=== PATIENT | female | born 1955 | race Caucasian/White ===

== ENCOUNTER 2021-04-04 21:26 | Emergency (ER) | payer MEDICARE, OTHER ==
[2021-04-04] MEDS ORDERED: Sodium Chloride 0.9% 10 ML Syringe FLUSH PRN (21:35)
--- NOTE | 2021-04-04 21:46 | EDM.PDOC ---
ED HPI GENERAL MEDICAL PROBLEM - General Chief Complaint: Cardiovascular Problem Stated Complaint: LOW BLOOD PRESSURE Time Seen by Provider: 04/04/21 21:34 Source of Information: Reports: Patient, Family History Limitations: Reports: No Limitations - History of Present Illness INITIAL COMMENTS - FREE TEXT/NARRATIVE: Janessa is a 66-year-old female from [place], [place] who presents to the ED for evaluation of nausea, mild shortness of breath, heartburn, and jaw pain that started about 2 hours ago. The patient also reportedly had heartburn yesterday which she attributed to her symptoms related to her hiatal hernia. The patient has a history significant for hypertension, hyperlipidemia, obesity, B12 deficiency with easy bruisability and a hiatal hernia. I report, the patient's family including her daughter who is an ER nurse treated her by icing her groin and armpits and gave her 4 81 mg aspirin to chew. This did not improve her symptoms prompting him to come in for evaluation. The patient does take lisinopril, amlodipine, omeprazole, and furosemide as well as a multitude of vitamins and gets B12 shots monthly. She normally receives her health care at [facility] in [place], [place]. Additional history from the family and patient, she reportedly is having some word finding difficulty at the onset of the symptoms at 1930 hrs. tonight which may be due to vasovagal type episode, however, family is very concerned that she may have had a TIA. Currently the symptoms are abating. They would like her to have a CT of the head to evaluate for stroke. Patient has a known carotid stenosis. Patient is also complaining of a mild headache since his onset of symptoms. 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: EKG - Related Data Allergies Allergy/AdvReac Type Severity Reaction Status Date / Time No Known Allergies Allergy Verified 04/04/21 21:40 Home Meds: Home Meds Ascorbic Acid [Vitamin C] 1 tab PO DAILY 04/04/21 [History] Aspirin [Halfprin] 1 tab PO DAILY 04/04/21 [History] Biotin 5,000 mcg PO DAILY 04/04/21 [History] Cholecalciferol (Vitamin D3) [D3-2000] 125 mcg PO DAILY 04/04/21 [History] Furosemide [Lasix] 20 mg PO DAILY 04/04/21 [History] Ibuprofen [Motrin] 1 tab PO TID 04/04/21 [History] Magnesium 1 tab PO DAILY 04/04/21 [History] Minocycline [Minocin] 1 cap PO DAILY 04/04/21 [History] Multivit-Min/FA/Lycopen/Lutein [Centrum Silver Tablet] 1 tab PO DAILY 04/04/21 [History] Omeprazole 20 mg PO BID 04/04/21 [History] Potassium Gluconate 1 tab PO DAILY 04/04/21 [History] Pregabalin [Lyrica] 1 cap PO BID 04/04/21 [History] Rosuvastatin [Crestor] 5 mg PO QPM 04/04/21 [History] Vitamin B6-pyridOXINE 1 tab PO DAILY 04/04/21 [History] Zinc 1 tab PO DAILY 04/04/21 [History] amLODIPine Besylate [Amlodipine Besylate] 10 mg PO DAILY 04/04/21 [History] lisinopriL [Prinivil] 40 mg PO DAILY 04/04/21 [History] traMADol HCl [Tramadol HCl] 1 mg PO TID PRN 04/04/21 [History] ED ROS GENERAL - Review of Systems Review Of Systems: See Below Constitutional: Reports: No Symptoms HEENT: Reports: No Symptoms Respiratory: Reports: No Symptoms Cardiovascular: Reports: Chest Pain (Central chest pressure and jaw pain) Endocrine: Reports: No Symptoms GI/Abdominal: Reports: No Symptoms : Reports: No Symptoms Musculoskeletal: Reports: No Symptoms Skin: Reports: No Symptoms Neurological: Reports: No Symptoms Psychiatric: Reports: No Symptoms Hematologic/Lymphatic: Reports: No Symptoms Immunologic: Reports: No Symptoms ED EXAM, GENERAL - Physical Exam Exam: See Below Exam Limited By: No Limitations General Appearance: Alert, Anxious, Mild Distress Eye Exam: Bilateral Eye: EOMI, PERRL Nose: Normal Inspection Throat/Mouth: Normal Inspection, Normal Oropharynx, Normal Voice, No Airway Compromise Head: Atraumatic, Normocephalic Neck: Normal Inspection, Supple, Non-Tender, Full Range of Motion. No: Carotid Bruit, Lymphadenopathy (R), Lymphadenopathy (L) Respiratory/Chest: No Respiratory Distress, Lungs Clear, Normal Breath Sounds Cardiovascular: Normal Peripheral Pulses, Regular Rate, Rhythm, No Murmur Peripheral Pulses: 2+: Radial (L), Radial (R), Posterior Tibial (L), Posterior Tibial (R) GI/Abdominal: Normal Bowel Sounds, Soft, Non-Tender Back Exam: Normal Inspection Extremities: Normal Inspection, Normal Range of Motion, No Pedal Edema, Normal Capillary Refill Neurological: Alert, Oriented, CN II-XII Intact, Normal Cognition, No Motor/Sensory Deficits Psychiatric: Normal Affect Skin Exam: Warm, Dry, Ecchymosis (Numerous bruises on upper and lower extremities of varying age and coloration. Patient has a history of easy bruisability due to B12 deficiency.) Lymphatic: No Adenopathy #1 Interpretation EKG Date: 04/04/21 Time: 21:30 Rhythm: NSR (With occasional PACs) Rate (Beats/Min): 56 [place]: Normal P-Wave: Present QRS: Normal ST-T: Normal QT: Normal Comparison: NA - No Prior EKG Course - Vital Signs Last Recorded V/S: Last Vital Signs Temp 35.5 C L 04/04/21 21:53 Pulse 61 04/04/21 21:53 Resp 12 04/04/21 21:53 BP 146/85 H 04/04/21 21:53 Pulse Ox 100 04/04/21 21:53 - Orders/Labs/Meds Orders: Active Orders 24 hr Category Date Time Status EKG Documentation Completion [RC] ASDIRECTED Care 04/04/21 21:36 Active Chest 2V [CR] Stat Exams 04/04/21 21:42 Taken Sodium Chloride 0.9% [Saline Flush] Med 04/04/21 21:35 Active 10 ml FLUSH ASDIRECTED PRN Saline Lock Insert [OM.PC] Routine Oth 04/04/21 21:35 Ordered EKG 12 Lead [EK] Routine Ther 04/04/21 21:35 Ordered Medication Orders Sodium Chloride (Sodium Chloride 0.9% 10 Ml Syringe) 10 ml FLUSH ASDIRECTED PRN PRN Reason: Keep Vein Open Last Admin: 04/04/21 23:47 Dose: 10 ml Documented by: ELIANA Labs: Laboratory Tests 04/04/21 04/04/21 04/04/21 Range/Units 21:58 21:58 21:58 WBC 7.4 (4.5-11.0) K/uL RBC 3.96 (3.30-5.50) M/uL Hgb 11.9 L (12.0-15.0) g/dL Hct 34.8 L (36.0-48.0) % MCV 88 (80-98) fL MCH 30 (27-31) pg MCHC 34 (32-36) % Plt Count 229 (150-400) K/uL Neut % (Auto) 70.1 H (36-66) % Lymph % (Auto) 15.9 L (24-44) % [place] % (Auto) 7.6 H (2-6) % Eos % (Auto) 6.1 H (2-4) % Baso % (Auto) 0.3 (0-1) % PT 11.1 (9.5-12.0) sec INR 1.02 (0.80-1.20) APTT 26.2 L (27.0-36.0) sec Sodium 131 L (140-148) mmol/L Potassium 4.7 (3.6-5.2) mmol/L Chloride 98 L (100-108) mmol/L Carbon Dioxide 24 (21-32) mmol/L Anion Gap 13.7 (5.0-14.0) mmol/L BUN 24 H (7-18) mg/dL Creatinine 1.4 H (0.6-1.0) mg/dL Est Cr Clr Drug Dosing 29.42 mL/min Estimated GFR (MDRD) 38 L (>60) Glucose 111 H (74-106) mg/dL Calcium 7.9 L (8.5-10.1) mg/dL Magnesium (1.8-2.4) mg/dL Total Bilirubin 0.3 (0.2-1.0) mg/dL AST 24 (15-37) U/L ALT 24 (12-78) U/L Alkaline Phosphatase 92 (46-116) U/L Troponin I < 0.017 (0.000-0.056) ng/mL Total Protein 6.3 L (6.4-8.2) g/dL Albumin 3.3 L (3.4-5.0) g/dL Globulin 3.0 (2.3-3.5) g/dL Albumin/Globulin Ratio 1.1 L (1.2-2.2) 04/04/21 04/05/21 Range/Units 21:58 01:05 WBC (4.5-11.0) K/uL RBC (3.30-5.50) M/uL Hgb (12.0-15.0) g/dL Hct (36.0-48.0) % MCV (80-98) fL MCH (27-31) pg MCHC (32-36) % Plt Count (150-400) K/uL Neut % (Auto) (36-66) % Lymph % (Auto) (24-44) % [place] % (Auto) (2-6) % Eos % (Auto) (2-4) % Baso % (Auto) (0-1) % PT (9.5-12.0) sec INR (0.80-1.20) APTT (27.0-36.0) sec Sodium (140-148) mmol/L Potassium (3.6-5.2) mmol/L Chloride (100-108) mmol/L Carbon Dioxide (21-32) mmol/L Anion Gap (5.0-14.0) mmol/L BUN (7-18) mg/dL Creatinine (0.6-1.0) mg/dL Est Cr Clr Drug Dosing mL/min Estimated GFR (MDRD) (>60) Glucose (74-106) mg/dL Calcium (8.5-10.1) mg/dL Magnesium 2.2 (1.8-2.4) mg/dL Total Bilirubin (0.2-1.0) mg/dL AST (15-37) U/L ALT (12-78) U/L Alkaline Phosphatase (46-116) U/L Troponin I < 0.017 (0.000-0.056) ng/mL Total Protein (6.4-8.2) g/dL Albumin (3.4-5.0) g/dL Globulin (2.3-3.5) g/dL Albumin/Globulin Ratio (1.2-2.2) Meds: Medications Generic Name Dose Route Start Last Admin Trade Name Freq PRN Reason Stop Dose Admin Sodium Chloride 10 ml 04/04/21 21:35 04/04/21 23:47 Sodium Chloride 0.9% 10 Ml Syringe FLUSH 10 ml ASDIRECTED PRN Administration Keep Vein Open - Radiology Interpretation Free Text/Narrative:: I reviewed the images of the CT of the head without contrast as well as the report as follows: FINDINGS: : There are multiple calcified dural nodules larger and more numerous on the right than the left. These are consistent with multiple meningiomas. The largest is in the right mid parietal region measuring 1.7 x 0.6 centimeters. There is a cluster of smaller nodules in the right high mid-anterior parietal region. These produce no mass-effect upon the underlying brain. The brain itself is normal in appearance for the patient`s age on today`s study, with no sign of mass lesion, mass effect, hemorrhage, or edema. The ventricles and sulci are normal in appearance for the patient`s age. The visualized portions of the orbits are normal in appearance. The visualized portions of the paranasal sinuses and mastoids are clear. The osseous structures are normal in their appearance with no sign of abnormality in the skull base or calvarium. IMPRESSION: Multiple small calcified meningiomas, larger and more numerous on the right than the left, producing mass effect upon the underlying brain. Normal CT appearance of the brain itself with no sign of acute injury. Please note that all CT scans at this facility use dose modulation, iterative reconstruction, and/or weight-based dosing when appropriate to reduce radiation dose to as low as reasonably achievable. Dictated by Shashi Trejo MD @ 04/05/2021 1:04:02 AM - Re-Assessments/Exams Free Text/Narrative Re-Assessment/Exam: 04/05/21 01:36 I reviewed the EKG which essentially shows normal sinus rhythm without evidence of ST elevation or depression. The exam is unremarkable for any significant findings except for the bruising of various ages secondary to her B12 deficiency. Labs were obtained showing a normal CBC with a leukocyte count of 7.4, hemoglobin of 11.9, hematocrit of 34.8 and a platelet count of 229,000. Comprehensive metabolic panel significant for sodium 131, potassium 4.7, chloride of 98, bicarbonate of 24, BUN of 24, creatinine 1.4, glucose of 111, with a GFR calculated 38. Calcium is 7.2 with an albumin of 3.3 given a corrected calcium of 8.2. Troponin I is negative at less than 0.017. PT and PTT are both normal. Because of the significant concern from the family that she may have had a TIA when she had some word finding difficulty today versus a vasovagal episode causing the diaphoresis and her confusion, we did proceed with a CT of the head without contrast. This failed to demonstrate any acute abnor malities to suggest a stroke or transient ischemic attack. She does have calcified meningiomas causing some mass-effect but this is chronic and ongoing not acute and likely not responsible for the symptoms today. We did agree did check a delta troponin at 0100 hrs. which would have been 3 hours after the initial troponin. If this too is negative I believe the patient can be safely discharged home. 04/05/21 01:52 repeat troponin is also <0.017. At this time, I believe the patient is suitable for discharge home in satisfactory condition. Indications to return to the ED were discussed. I suspect that the most common cause for her symptoms today is a vasovagal syncopal or presyncopal episode. Departure - Departure Time of Disposition: 01:52 Disposition: Home, Self-Care 01 Clinical Impression: Vasovagal near syncope, Jaw pain Instructions: Near-Syncope, [id number] Referrals: PCP,None [Primary Care Provider] - Forms: ED Department Discharge Care Plan Goals: Your work-up today has shown that your symptoms are not directly related to the heart and the fact that there is no evidence for heart damage either on your EKG or with your labs. The CT of your brain did not show any new findings. You do have calcified meningiomas which you have likely had for most of your adult life. There was no evidence for stroke or TIA. Your troponins are both negative. I think that you likely had a vasovagal near syncopal episode causing diminished blood flow to the brain contributing to a decreased perfusion of the brain tissue resulting in altered mental status. Maintaining good hydration may lessen the likelihood of recurrence of this. Sepsis Event Note (ED) - Focused Exam Vital Signs: Vital Signs Temp Pulse Resp BP Pulse Ox 04/04/21 21:53 35.5 C L 61 12 146/85 H 100 04/04/21 21:38 35.5 C L 61 12 146/85 H 100 - Problem List & Annotations (1) Jaw pain SNOMED Code(s): 725089445 Code(s): R68.84 - JAW PAIN Status: Acute Priority: Medium Current Visit: Yes (2) Vasovagal near syncope SNOMED Code(s): 559731657 Code(s): R55 - SYNCOPE AND COLLAPSE Status: Acute Priority: High Current Visit: Yes - Problem List Review Problem List Initiated/Reviewed/Updated: Yes - My Orders Last 24 Hours: My Active Orders 04/04/21 21:35 Sodium Chloride 0.9% [Saline Flush] 10 ml FLUSH ASDIRECTED PRN Saline Lock Insert [OM.PC] Routine EKG 12 Lead [EK] Routine 04/04/21 21:36 EKG Documentation Completion [RC] ASDIRECTED 04/04/21 21:42 Chest 2V [CR] Stat - Assessment/Plan Last 24 Hours: My Active Orders 04/04/21 21:35 Sodium Chloride 0.9% [Saline Flush] 10 ml FLUSH ASDIRECTED PRN Saline Lock Insert [OM.PC] Routine EKG 12 Lead [EK] Routine 04/04/21 21:36 EKG Documentation Completion [RC] ASDIRECTED 04/04/21 21:42 Chest 2V [CR] Stat
--- NOTE | 2021-04-05 01:04 | CRLCT ---
For Patients: As a result of the Century Cures Act, medical imaging exams and procedure reports are released immediately into your electronic medical record. You may view this report before your referring provider. If you have questions, please contact your health care provider. INDICATION: Word-finding difficulty earlier today. COMPARISON: None available. TECHNIQUE: CT examination of the head was performed with 3 mm thick axial sections without intravenous contrast. Images were obtained from the vertex of the skull through the skull base, and I examined the images with the brain and bone windows. Please note that all CT scans at this facility use dose modulation, iterative reconstruction, and/or weight-based dosing when appropriate to reduce radiation dose to as low as reasonably achievable. FINDINGS: : There are multiple calcified dural nodules larger and more numerous on the right than the left. These are consistent with multiple meningiomas. The largest is in the right mid parietal region measuring 1.7 x 0.6 centimeters. There is a cluster of smaller nodules in the right high mid-anterior parietal region. These produce no mass-effect upon the underlying brain. The brain itself is normal in appearance for the patient`s age on today`s study, with no sign of mass lesion, mass effect, hemorrhage, or edema. The ventricles and sulci are normal in appearance for the patient`s age. The visualized portions of the orbits are normal in appearance. The visualized portions of the paranasal sinuses and mastoids are clear. The osseous structures are normal in their appearance with no sign of abnormality in the skull base or calvarium. IMPRESSION: Multiple small calcified meningiomas, larger and more numerous on the right than the left, producing mass effect upon the underlying brain. Normal CT appearance of the brain itself with no sign of acute injury. Please note that all CT scans at this facility use dose modulation, iterative reconstruction, and/or weight-based dosing when appropriate to reduce radiation dose to as low as reasonably achievable. Dictated by Shashi Trejo MD @ 04/05/2021 1:04:[address] Shashi Trejo @ Apr 05 2021 1:04AM
--- NOTE | 2021-04-06 10:27 | CR ---
CHEST: 2 view CLINICAL HISTORY:Chest pain COMPARISON:None FINDINGS: The heart size, pulmonary vascularity and hilar structures are normal. No infiltrate effusion or pneumothorax is seen. IMPRESSION: No acute cardiopulmonary process.
== END 2021-04-05 02:32 | disposition home or self-care (01) ==
LOC: JP.ED 21:26
DX: R55 Syncope and collapse (principal); R68.84 Jaw pain; I10 Essential (primary) hypertension; E78.5 Hyperlipidemia, unspecified; E66.9 Obesity, unspecified; Z79.82 Long term (current) use of aspirin; Z68.42 Body mass index [BMI] 45.0-49.9, adult; Z87.19 Personal history of other diseases of the digestive system; Z79.899 Other long term (current) drug therapy
CPT/HCPCS: 36415; 70450; 71046; 71046-26; 80053; 83735; 84484; 85025; 85610; 85730; 93005; 99285-25